=== PATIENT | female | born 1990 | race Two or more races ===

== ENCOUNTER 2018-05-17 11:37 | Emergency (ER) | payer OTHER ==
[~2018-05-17] VITALS: Ht 165.1 cm; Wt 113.9 kg
[2018-05-17] MEDS ORDERED: SODIUM CHLORIDE 0.9% 1,000 ML IV ONE (12:10)
[2018-05-17] MEDS ORDERED: ONDANSETRON 2MG/ML, 2ML ONE (12:14)
[2018-05-17] MEDS ORDERED: MORPHINE SULFATE 4 MG/ML, 1ML ONE (12:14)
[2018-05-17 12:27] LABS: BASOPHILS # (AUTO) 0.06 x10^3/uL (0-0.1); BASOPHILS % (AUTO) 1 % (0-1); EOSINOPHILS # (AUTO) 0.17 x10^3/uL (0-0.4); EOSINOPHILS % (AUTO) 2 % (1-7); LYMPHOCYTES # (AUTO) 3.05 x10^3/uL (1-3.4); LYMPHOCYTES % (AUTO) 31 % (22-44); MD NO; MEAN CORPUSCULAR HEMOGLOBIN 31.2 pg (27.0-34.8); MEAN CORPUSCULAR HGB CONC 34.2 g/dL (32.4-35.8); MEAN CORPUSCULAR VOLUME 91.1 fL (80-100); MEAN PLATELET VOLUME 8.1 fL (7.4-10.4); MONOCYTES # (AUTO) 0.45 x10^3/uL (0.2-0.8); MONOCYTES % (AUTO) 5 % (2-9); NEUTROPHILS # (AUTO) 6.12 x10^3/uL (1.8-6.8); NEUTROPHILS % (AUTO) 62 % (42-75); PLATELET COUNT 320 x10^3/uL (130-400); RED BLOOD COUNT 4.83 x10^6/uL (3.82-5.3); RED CELL DISTRIBUTION WIDTH 13.9 % (9.6-15.2)
[2018-05-17] MEDS ORDERED: MORPHINE SULFATE 4 MG/ML, 1ML IVPush PRN (12:30)
[2018-05-17] MEDS ORDERED: ONDANSETRON 2MG/ML, 2ML IVPush ONE (12:30)
[2018-05-17] MEDS ORDERED: CIPRO (12:34)
[2018-05-17 12:37] LABS: ALBUMIN 3.5 g/dL (3.4-5.0); ANION GAP 9 mmol/L (5-15); CALCIUM 8.4 mg/dL (8.5-10.1); CHLORIDE 108 mmol/L (98-107)
[2018-05-17 12:40] LABS: ALANINE AMINOTRANSFERASE 18 U/L (12-78); ALKALINE PHOSPHATASE 85 U/L (45-117); BILIRUBIN,TOTAL 0.4 mg/dL (0.2-1.0); CREATININE 0.62 mg/dL (0.55-1.02); TOTAL PROTEIN 7.5 g/dL (6.4-8.2)
[2018-05-17 12:49] LABS: HCG UR SG 1.016 (1.003-1.030)
[2018-05-17 13:04] LABS: MICROSCOPIC INDICATED
[2018-05-17 13:15] LABS: CULTURE INDICATED? YES
[2018-05-17] MEDS ORDERED: KETOROLAC 30 MG/1 ML IVPush ONE (14:30)
[2018-05-17] MEDS ORDERED: METOCLOPRAMIDE 5 MG/ML, 2ML IVPush ONE (14:30)
[2018-05-17] MEDS ORDERED: DIPHENHYDRAMINE 50 MG/ML, 1ML IVPush ONE (14:30)
[2018-05-17] MEDS ORDERED: DIPHENHYDRAMINE 50 MG/ML, 1ML ONE (14:52)
[2018-05-17] MEDS ORDERED: KETOROLAC 30 MG/1 ML ONE (14:52)
[2018-05-17] MEDS ORDERED: METOCLOPRAMIDE 5 MG/ML, 2ML ONE (14:52)
[2018-05-17 15:48] VITALS: BP 115/61
== END 2018-05-17 15:59 | disposition home or self-care (01) ==
LOC: ED 13:57
DX: N30.00 Acute cystitis without hematuria (principal); M54.5 Low back pain
CPT/HCPCS: 36415; 76700; 80053; 81001; 81025; 83690; 85025; 87086; 96361; 96374; 96375; 99285; J1200; J1885; J2405; J2765; J7030

== ENCOUNTER 2018-10-12 17:11 | Emergency (ER) | payer SELFPAY ==
[~2018-10-12] VITALS: Ht 162.6 cm; Wt 114.1 kg
[~2018-10-12 17:11] MED LIST: CIPRO
[2018-10-12] MEDS ORDERED: KETOROLAC 30 MG/1 ML ONE (17:52)
[2018-10-12] MEDS ORDERED: DIPHENHYDRAMINE 25 MG CAPSULE ONE (17:53)
[2018-10-12] MEDS ORDERED: METOCLOPRAMIDE 10MG TABLET ONE (17:53)
[2018-10-12] MEDS ORDERED: DIPHENHYDRAMINE 25 MG CAPSULE PO ONE (18:00)
[2018-10-12] MEDS ORDERED: KETOROLAC 30 MG/1 ML IM ONE (18:00)
[2018-10-12] MEDS ORDERED: METOCLOPRAMIDE 10MG TABLET PO ONE (18:00)
--- NOTE | 2018-10-12 18:16 | NUR ---
ERP TO THE BS
--- NOTE | 2018-10-12 19:05 | NUR ---
REPORT RECEIVED FROM LOKESH BUCHANAN AT BEDSIDE, PT REPORTS HEADACHE HAS ONLY SLIGHT IMPROVEMENT SINCE MEDS GIVEN. AWARE. ORDER RECEIVED FOR DILAUDID IM. PT ON BP AND SPO2 MONTIORS. S/O AT BEDSIDE. PT A&O, RESPS EVEN AND UNLABORED, NADN.
[2018-10-12] MEDS ORDERED: HYDROmorphone 1 MG/ML, 1ML VIAL ONE (19:14)
--- NOTE | 2018-10-12 19:20 | NUR ---
PT MEDICATED PER EMAR, TOLERATED WELL. PT A&OX4, NEURO INTACT. RESPS EVEN AND UNLABORED. PT TO BE DISCHARGED PENDING SATISFACTORY PAIN LEVEL S/P DILAUDID.
[2018-10-12] MEDS ORDERED: HYDROmorphone 1 MG/ML, 1ML AMP IM ONE (19:30)
[2018-10-12 20:03] VITALS: BP 102/50
--- NOTE | 2018-10-12 20:04 | NUR ---
PT GIVEN DC INSTRUCTIONS AND SCRIPT, EDUCATED IN MAURIT[place]. PT EDUCATED REGARDING FLEXIRIL AND NAPROXEN. PT A&OX4, PT STATES HEADACHE RESOLVED, RESPS EVEN AND UNLABORED. PT EDUCATED NOT TO DRIVE TONIGHT D/T MEDS GIVEN. PT AMB TO DC DESK WITH STEADY GAIT, ACCOMPANIED BY .
== END 2018-10-12 20:05 | disposition home or self-care (01) ==
LOC: ED 19:59
DX: G44.219 Episodic tension-type headache, not intractable (principal)
CPT/HCPCS: 96372; 99283; J1170; J1885; Q0163

== ENCOUNTER 2019-02-22 20:04 | Emergency (ER) | payer SELFPAY ==
[~2019-02-22] VITALS: Ht 165.1 cm; Wt 116.6 kg
[2019-02-22 20:17] VITALS: BP 152/87
== END 2019-02-22 23:08 | disposition home or self-care (01) ==
LOC: ED 23:00
DX: M79.641 Pain in right hand (principal); M79.642 Pain in left hand; M79.672 Pain in left foot; M79.671 Pain in right foot; R53.1 Weakness; R51 Headache; Z98.890 Other specified postprocedural states
CPT/HCPCS: 36415; 80048; 81003; 81025; 82040; 84436; 84443; 85025; 93005; 99284; Q0162